=== PATIENT | female | born 1955 | race Caucasian/White ===

== ENCOUNTER 2019-08-16 07:11 | Day surgery (SDC) | payer OTHER ==
[2019-08-13 12:07] LABS: Absolute Lymphocytes (CBC) 1.9 K/uL (0.7-4.9); Basophils % 1.3 % (0-1.3); Hematocrit 44.1 % (36.0-45.0); Lymphocytes % 37.5 % (15.3-44.8); MPV 8.2 fL (7.6-11.3); RBC Red Blood Cell Count 4.74 M/uL (3.86-4.86)
[2019-08-13 12:09] LABS: Urine Appearance TURBID; Urine Bilirubin NEGATIVE (NEG); Urine Blood NEGATIVE (NEG); Urine Color YELLOW; Urine Glucose NEGATIVE (NEG); Urine Protein NEGATIVE (NEG); Urine Urobilinogen 0.2 mg/dL (0.2-1.0)
[2019-08-13 12:18] LABS: Urine Bacteria <20 /HPF (<20); Urine Culture Reflex Order NOT NEEDED; Urine Microscopic Reflex ORDER UMIC; Urine RBC <5 /HPF (NONE SEEN)
[2019-08-13 12:18] LABS: Potassium 3.9 mmol/L (3.5-5.1)
--- OUTSIDE RECORDS SUMMARY | 2019-08-16 07:15 | XMS REPORT ---
:1955 Author Organization [employer] Care Team Providers Name Role Phone Sharyn Reveles Provider Role Unavailable Allergies, Adverse Reactions, Alerts Substance Reaction Event Type N.K.D.A. Info Not Available Non Drug Allergy Problems Problem Type Condition Code Onset Dates Condition Status Problem Essential (primary) hypertension I10 Active Problem Family history of ischemic heart Z82.49 Active disease Problem History of calculus of gallbladder Z87.19 Active Assessment Abnormal glucose R73.09 Active Assessment Sciatic leg pain M54.30 Active Problem History of IBS Z87.19 Active Problem Sciatic leg pain M54.30 Active Problem Age-related osteoporosis without M81.0 Active current pathological fracture Problem Abnormal glucose R73.09 Active Problem Osteoarthritis of multiple joints, M15.9 Active unspecified osteoarthritis type Problem Hyperlipidemia, unspecified E78.5 Active hyperlipidemia type Problem Osteoporosis screening Z13.820 Active Problem Fatigue, unspecified type R53.83 Active Medications Medication Code Code Instructions Start End Status Dosage System Date Date Vitamin D3 [facility] 41283807906 5000 UNIT Active 1 capsule Orally Once a day Aspir-81 [facility] 90694225450 81 MG Orally Active 1 tablet Once a day L-Glutamine ND 88798458638 500 MG Orally Active as directed Turmeric ND 71688691797 500 MG Orally Active as directed Milk Thistle [facility] 85579113878 500 MG Orally Active as directed Zestoretic [facility] 97873459225 20-25 MG Orally Active 1 tablet Once a day Glucosamine ND 69987739674 500 MG Orally Active 1 capsule Three times a with a meal day Magnesium ND 44347978296 250 MG Orally Active 1 tablet Once a day with a meal Probiotic [facility] 83722997565 - Orally Active as directed Gabapentin ND 12183051587 100 MG Orally Apr 03, Active 1 capsule Once a day 2018 Barre III ND 34186544811 1000 MG Orally Active 1 capsule EPA+DHA Once a day Estrace ND 63406816637 0.1 MG/GM Active 1 gram Vaginal three times a week Fish Oil [facility] 14413031614 1000 MG Orally Active 1 capsule Once a day Results Name Result Date Reference Range Unit Abnormality Flag HEMOGLOBIN A1C ----A1C 5.6 [id number] Summary Purpose [employer]ClinicalWorks Submission
--- OUTSIDE RECORDS SUMMARY | 2019-08-16 07:15 | XMS REPORT ---
:1955 Author Organization [employer] Care Team Providers Name Role Phone Abdirizak Sharyn Provider Role Unavailable Allergies No Known Allergies Problems Problem Type Condition Code Onset Dates Condition Status Problem Essential (primary) hypertension I10 Active Problem History of IBS Z87.19 Active Assessment Age-related osteoporosis without M81.0 Active current pathological fracture Problem Osteoporosis screening Z13.820 Active Problem Fatigue, unspecified type R53.83 Active Problem Age-related osteoporosis without M81.0 Active current pathological fracture Problem Family history of ischemic heart Z82.49 Active disease Problem History of calculus of gallbladder Z87.19 Active Problem Osteoarthritis of multiple joints, M15.9 Active unspecified osteoarthritis type Problem Hyperlipidemia, unspecified E78.5 Active hyperlipidemia type Medications No Known Medications Results No Known Results Summary Purpose [employer]ClinicalWorks Submission
[2019-08-16] MEDS ORDERED: NA CHLORIDE 0.9% 100 ML IV ONE (07:21)
[2019-08-16] MEDS ORDERED: CEFAZOLIN/SWI 1gm 1 GM/10 ML SYR ONE ×2 (07:21→12:18)
[2019-08-16] MEDS ORDERED: Ringers Lactate 1,000 ML IV ONE ×2 (07:56→17:29)
[2019-08-16] MEDS ORDERED: ROCURONIUM 50 MG/5 ML VIAL IV ONE (08:12)
[2019-08-16] MEDS ORDERED: FENTANYL CITR 250 MCG/5 ML ONE ×2 (08:12→10:16)
[2019-08-16] MEDS ORDERED: propofoL 200 MG/20 ML VIAL IV ONE (08:12)
[2019-08-16] MEDS ORDERED: LIDOCAINE 2% MPF 5 ML VIAL ONE (08:12)
[2019-08-16] MEDS ORDERED: MIDAZOLAM HCL 2 MG/2 ML INJ ONE (08:12)
[2019-08-16] MEDS ORDERED: dexAMETHasone 10 MG/ML VIAL ONE (08:12)
[2019-08-16] MEDS ORDERED: ONDANSETRON 4 MG/2 ML VIAL ONE ×2 (08:13→16:19)
[2019-08-16 08:15] VITALS: O2SAT 100
[2019-08-16] MEDS ORDERED: BUPIVACAINE 0.25% PF 30 ML VIAL ONE ×2 (08:30→09:52)
[2019-08-16] MEDS: CEFAZOLIN/SWI 2gm 2 GM/20 ML SYR ONE ×2 (09:05→09:43)
[2019-08-16] MEDS ORDERED: EPHEDRINE SULF 50 MG/ML VIAL ONE (09:21)
[2019-08-16] MEDS: Ringers Lactate 1,000 ML IV ONE ×4 (09:49→13:22)
[2019-08-16] MEDS ORDERED: LABETALOL 20 MG/4ML SYRINGE IV ONE (09:56)
[2019-08-16] MEDS: VASOPRESSIN 20 UNIT/ML VIAL ONE ×2 (14:00→14:35)
[2019-08-16] MEDS ORDERED: KETOROLAC 30 MG/ML INJ ONE (14:41)
[2019-08-16] MEDS ORDERED: MORPHINE 4 MG/ML SYR IV PRN (15:57)
[2019-08-16] MEDS ORDERED: IBUPROFEN 600 MG TAB PO PRN (15:58)
[2019-08-16] MEDS ORDERED: HYDROCODONE/APAP 5/325 MG TAB PO PRN (15:58)
[2019-08-16] MEDS ORDERED: PROMETHAZINE INJ 25 MG/ML AMP IV PRN (15:59)
[2019-08-16 16:08] LABS: Absolute Lymphocytes (CBC) 0.6 K/uL (0.7-4.9); Basophils % 0.2 % (0-1.3); Hematocrit 41.4 % (36.0-45.0); Lymphocytes % 3.4 % (15.3-44.8); MPV 7.8 fL (7.6-11.3); RBC Red Blood Cell Count 4.49 M/uL (3.86-4.86)
[2019-08-16] MEDS ORDERED: HYDROMORPHONE HCL 1 MG/ML INJ ONE (16:19)
[2019-08-16 16:20] LABS: Potassium 3.4 mmol/L (3.5-5.1)
[2019-08-16 16:54] VITALS: BMI 23.0
--- NOTE | 2019-08-16 20:01 | OP ---
Date of Procedure: 08/16/2019 Surgeon: Nathaly Medina MD Funeral Arranger: Marjan Barone and Dr. Maximino Montague. Preoperative Diagnoses: 1.Post hysterectomy with vaginal wall prolapse (level 1) prolapse. 2.Anterior wall prolapse. 3.Mild posterior defect, occult stress urinary incontinence. Postoperative Diagnoses: 1.Post hysterectomy with vaginal wall prolapse (level 1) prolapse. 2.Anterior wall prolapse. 3.Mild posterior defect, occult stress urinary incontinence. 4.Adhesions of the bowel and sigmoid. Procedures Performed: 1.Laparoscopy. 2.Bilateral salpingo-oophorectomy. 3.Laparoscopic lysis of adhesions and sacral colpopexy using Epsilon mesh. 4.Mid urethral sling (TVTO). 5.Cystoscopy. 6.Perineorrhaphy. Anesthesia: General endotracheal. Specimen: Bilateral tubes and ovaries. Estimated Blood Loss: Minimal. Findings: POP-Q 0, +2, 0, 3, moderate, 5, -2, -2 NA. There was a posterior enterocele as well. Indications: The patient is a 64-year-old with prolapse that initially had a hysterectomy and apical repair, had recurrence fairly less than 1 year from the procedure. She had used vaginal laser thera py as the recurrent urinary tract infections due to incomplete emptying. The prolapse was causing in creasing blunt bulge symptoms. Initially tried a pessary was painful and was unable to retain it. S o, remove the pessary and managed with observation and prophylactic antibiotics intermittently. Vagi nal estrogen therapy could not tolerate her symptoms despite all this, so wanted to proceed with surg ical repair. She was consented for a sacral colpopexy or a sacrospinous ligament fixation. This was disadvantages, because the length of the vagina was somewhat shorter. A biological repair with vagi nal biological graft augmented repair was also reviewed with the patient after consenting of both ris ks and benefits and recurrences of all the procedure, she decided to proceed with the colpopexy, so c onsented and brought to the OR and 2 g of Ancef were given. Description Of Procedure: She was taken back to OR, placed in supine fashion on the operating table. General anesthesia given, placed in a dorsal lithotomy position. Arms tucked by the side. Then, a bdomen, vulva, vagina, and perineum were prepped and draped in a sterile fashion. POP-Q exam was per formed and document as above. Sullivan was placed in the bladder and this area was draped. The Sullivan was attached to bag with LR that was emptied 300 from a liter bag for retrograde filling and for collecting the urine. 1 cm supraumbilical incision was made with a scalpel using the open laparoscopy technique. Fascia wa s incised, tagged with 0 Vicryl sutures. Peritoneum entered bluntly. S-retractors were placed. Has son introduced. Site of entry was checked, unremarkable. The patient was placed in Trendelenburg po sition. Two 8 ports, 1 in the left and right were placed under direct vision. A 10 suprapubic port was placed. All the skin and fascial planes were injected with 0.25% Marcaine prior to the incisions . Once all the trocars were sent in place, the tubes and ovaries were visualized. There were adhesions of the bowel to the vaginal cuff and then to the left pelvic outlet. All the adhesions were taken d own with sharp dissection using scissors. Then, the tubes and ovaries were freed from the lateral wa ll and from the apex. The tube and ovary were removed using the LigaSure to being careful that both ureters were traced from the pelvic brim to the ureteric tunnels and they were not distorted in their location and were now close to where the tubes and ovaries were adhered. Once both tubes and ovaries were removed, they were removed through the suprapubic port using the End oCatch bag. Patient was placed in Trendelenburg and further bowel packed in the upper abdomen. Incision made on the vaginal cuff with scissors and sharp dissection used to separate the bladder from the top of the vagina and this was pushed back vaginally. The bladder was dissected off the anterior vaginal wall a bout 3 to 4 cm in the midline then on the sides about 3 cm. Did not want to go any further, because the total vaginal length was only about 5 cm. Dissection was performed posteriorly. A piece of peritoneum was left on the top and then the posteri or dissection was performed. Opening the peritoneum between the vagina and the bladder. Medium Size r was placed in the rectum to delineate this from the vaginal wall. Once the transverse incision was made with scissors, the dissection was performed taking the rectum off the vaginal wall with push-sp read technique and by creating windows. Once this was all dropped down, then the sacral area was prepped. Peritoneum picked up. After ident ifying the vessels, the external iliac and ureter at the pelvic brim, then peritoneum picked up on elizabeth th sides and incised in the middle with the help of the LigaSure. Once this was opened up superiorly and the dissection was performed inferiorly all the way along and parallel to the bowel staying away from the ureter. Once the connection was made close to the uterosacral, then the peritoneal dissect ion was performed from the posterior cul-de-sac and this was connected. Initially before starting th e dissection for sacral colpopexy, I evaluated the uterosacral ligaments and they were very poor. Th ere was a remnant that could be visible in the high uterosacral area on the right side, but on the le ft side was completely smooth and it was difficult to delineate this. Once all the preperitoneal incision was opened up and it is widened enough to lay the mesh down, then Y mesh was taken and the measurement of the posterior dissection was about 7 to 8 cm, so this was 8 cm the length of the posterior graft taken and it was laid down. The anterior part of the Y was sutu red to the stem. A 2-0 V-Loc was used in the midline posterior distal most part of the graft through the vaginal wall and then the graft was pulled into the abdomen and was secured posteriorly in the m idline. 2-0 Prolene sutures were taken, 1 on either side of the distal part of the posterior arm and they wer e placed through the vaginal wall and then through the graft and they were tied down with extracorpor eal knot. The anterior mesh that was sutured to the sacral arm was set loose and retracted over the bladder. Then, the sacral arm was taken and deployed on the anterior longitudinal ligament and the m iddle sacral vessels were cauterized with the LigaSure and then 3 tacks with the Protac were placed i n a row and then went back up, folded the graft and placed 3 more. The mesh was trimmed closely and this was protective and the bowel was protected on the lateral aspect as well as the hypogastric plex us. On the right side, the iliac vessels were protected while performing this. Once the sacral ante rior longitudinal ligament and graft were secured, attention directed to the anterior vaginal wall. The anterior vaginal wall was dissected 3 to 3.5 cm. On the lateral aspects both side distally, two 2-0 Prolene sutures were placed in interrupted fashion and then passed through the graft. The anteri or graft was trimmed at 4 cm, so that there would be 1 cm gap between the apex and the Y of the graft . Then 3 cm laid on top of the anterior vaginal wall and this entered after both sides were secured down. The center with 2-0 V-Loc placed in a [id number]-[id number] fashion. Once this was trimmed, there w as still displacement of the vaginal wall at the apex from the graft. So in order for it to be secur e, I put a 2-0 V-Loc, 1 on each side on the anterior wall, not at the very tip of the apex but about a centimeter inferior to it on the lateral aspect just laying the mesh flap and similarly another sut ure was placed on the left lateral aspect of the posterior arm as well about a centimeter away from t he apex of the vaginal vault. On the right side, I placed the stitch, but I did not see how the way that it was tugging and making the mesh more tot. The suture was removed and left alone and the susp ension was checked vaginally. There was excellent support anteriorly and posteriorly and no evidence of any exposure of the graft. The Prolene suture in the distal arm on the right side appeared to be passing through the vaginal vault, but there was a very small piece of it and this was left alone. The posterior dissection was taken all the way down about 1 cm away from the perineal body. Once all this was checked and was optimal, then went ahead to close the peritoneal incision from the top to t he bottom in a Y-shaped fashion with a 2-0 V-Loc suture in a continuous running fashion. Taking the Y to the right first and then the rest of the stitch started from the left and joint in the middle of the wide. Thorough irrigation and suction were performed. No evidence of any trauma to the ureters or bladder or the bowel. The retracted bowel epiploicae were checked. She did have evidence of sigmoid diverti culitis or diverticula, diverticulosis. There was no evidence of any inflammation. The trocars were removed. Incisions were injected at the fascial plane and skin with Marcaine 0.25% and then all incisions closed with the help of 0 Vicryl sutures with the fascia and 4-0 Vicryl interr upted in the subcutaneous tissues. Mid urethral area was then held with 2 Allis clamps, one on each side and then injected with dilute v asopressin in the midline, and then dissection performed at 45 degree angle to the horizontal and brendan tical planes towards the ipsilateral shoulder, hugging the inferior pubic ramus opening the obturator space perforating the obturator membrane on both sides. The same dissection was performed and then the wing guide was taken on the left side. It was passed without any problems and spike passed and a rm retrieved through the left groin about 2 cm inferior to the adductor longus tendon and about a arminda timeter lateral to the groin fold. Similar pass was taken after the wing guide was placed on the opp osite side and similar exit point on the opposite side as well without catching the tendon. The mesh was tensioned in the middle using Metzenbaum scissors and sheaths were removed and the mesh was trim med very flushed and the skin pulled away from it to avoid puckering and then the vaginal epitheliali zation closed with the help of 3-0 Vicryl in a continuous running fashion. Sullivan was removed and bladder was drained. There was 400 mL of urine by that time. This was excludi ng the urine originally that was drained before the start of the case. 1 g of Ancef was redosed at 3 hours. Perineal body repair was done. Next, the perineal body was on the perineum, injected with dilute vas opressin. Then, on the vestibule and then the distal 1.5 cm off the posterior wall and laterally as well. A triangular incision made on the perineum to the vestibule and then a transverse incision to raise the posterior vaginal wall and epithelium and subepithelium from the connective tissue undernea th and this was well supported, but needed to be re-attached to the perineal body. So, once the tiss ues were dissected, then the perineal body was pulled together with the help of 2-0 Vicryl in a ashlie nuous running fashion and the top of the proximal part of the rectovaginal septum was reattached to t he perineal body with the help of 2-0 Vicryl sutures. Then 3-0 Vicryl was used after trimming a very small portion of the edges to trim the irregular vaginal epithelial scar from her likely episiotomy repairs. Then, this was closed with a 3-0 Vicryl in a continuous running fashion, subcutaneous in see bcuticular fashion and the perineal body on the perineum. The suture was tied on the inside. Rectal exam was performed intact. No foreign body or blood. The Sullivan was replaced after cystoscopy was p erformed after the sling was done. The bladder had no evidence of any mechanical or thermal injury. No foreign bodies were seen. The ureteric orifices both were visualized. The right one was much mo re flatter. However, there were jets of urine from both ureteric orifices. However, the left one wa s very strong. The right one was watched. There was some urine coming out of it for sure. All the jet was not as propulsive as the other side. There was adequate urine that was coming out and there was no suspicion of any obstruction. Bladder was drained. The patient was recovered from anesthesia . After instrument needle and sponge counts x3 were correct at the end of the case, she was taken to the PACU in stable condition. She will keep the Sullivan for 4 days and have a voiding trial on Tuesday . She will go home with prophylactic antibiotics for bladder infections and Macrobid here in the off ice, but she has trimethoprim 100 mg at home and she will continue to take. The skin incisions in th e groins were closed with Dermabond. RYANN/SCARLET Voice ID: [id number] Report ID: [id number]
[2019-08-17 06:29] LABS: Hematocrit 37.8 % (36.0-45.0)
[2019-08-17 06:50] LABS: Potassium 3.3 mmol/L (3.5-5.1)
[2019-08-17] MEDS ORDERED: NITROFURAN MACRO 100 MG CAP PO SCH (08:00)
[2019-08-17 08:19] VITALS: BP 120/59; TEMP 98
== END 2019-08-17 09:30 | disposition home or self-care (01) ==
LOC: OR 07:11 → 2ND-WC 15:52 → OR 08-17 09:30
PROVIDERS: ATTEND Obstetrics & Gynecology
PROC: 0UT74ZZ Resection of Bilateral Fallopian Tubes, Percutaneous Endoscopic Approach (ICD-10-PCS; 2019-08-16)
PROC: 0TSD0ZZ Reposition Urethra, Open Approach (ICD-10-PCS; 2019-08-16)
PROC: 0USG4ZZ Reposition Vagina, Percutaneous Endoscopic Approach (ICD-10-PCS; 2019-08-16)
PROC: 0UT24ZZ Resection of Bilateral Ovaries, Percutaneous Endoscopic Approach (ICD-10-PCS; principal; 2019-08-16 09:30)
DX: N99.3 Prolapse of vaginal vault after hysterectomy (principal); N39.3 Stress incontinence (female) (male); K66.0 Peritoneal adhesions (postprocedural) (postinfection); N95.2 Postmenopausal atrophic vaginitis; N83.8 Other noninflammatory disorders of ovary, fallopian tube and broad ligament; I10 Essential (primary) hypertension; M41.9 Scoliosis, unspecified; M19.90 Unspecified osteoarthritis, unspecified site; Z87.440 Personal history of urinary (tract) infections; Z88.3 Allergy status to other anti-infective agents; Z82.3 Family history of stroke
CPT/HCPCS: 58661; 57288; 57425; 85025 ×2; 80048 ×3; 36415 ×2; 86900; 86850; 85610; 86901; 88305; 85730; 85018; 85014; J2704; J2250; J3010 ×2; J1100; J1170; J0690 ×3; J7120 ×4; J2405 ×2; 81003; 81015

== ENCOUNTER → 2022-04-14 | Day surgery (SDC) | payer OTHER, MEDICARE ==
--- NOTE | 2022-04-14 13:32 | RAD REPORT ---
EXAM DESCRIPTION: US - Guided FNA Non Breast - 04/14/2022 9:39 am CLINICAL HISTORY: Thyroid nodule ICD E04.1 COMPARISON: None TECHNIQUE: Risks, benefits and alternatives of procedure explained to the patient and informed conse nt obtained. Skin and subcutaneous tissues anesthetized with lidocaine. Under sonographic guidance, five 25 gauge needle passes were obtained into the dominant nodule within the left lobe of the thyroid gland. Specimens given to pathology. Patient experienced no immediate complication IMPRESSION: Fine-needle aspiration of a dominant nodule within left lobe of thyroid gland
== END ==
LOC: FNA 08:00
PROVIDERS: ATTEND Otolaryngology
PROC: 0GBG3ZX Excision of Left Thyroid Gland Lobe, Percutaneous Approach, Diagnostic (ICD-10-PCS; principal; 2022-04-14)
DX: E04.1 Nontoxic single thyroid nodule (principal)
CPT/HCPCS: 88162; 88305